=== PATIENT | male | born 1990 | race Hispanic/Latino ===

== ENCOUNTER 2021-10-25 12:43 | Emergency (ER) | payer BC ==
[2021-10-25] VITALS (7 sets, daily range): BP systolic 120–147; BP diastolic 75–107
[~2021-10-25] VITALS: Ht 185.4 cm; Wt 127.0 kg
[2021-10-25 13:15] LABS: HEMATOCRIT 44.4 % (39.0-50.0); HEMOGLOBIN 14.7 g/dl (14.0-18.0); IMMATURE GRANULOCYTES 0.4 % (0.0-5.0); MEAN CELL VOLUME 83.1 fL CALC (80.0-100.0); MEAN CORPUSCULAR HGB 27.5 pG CALC (26.0-32.0); MEAN CORPUSCULAR HGB CONC 33.1 g/dL CAL (32.0-36.0); NEUT# 4.86 thou/uL (1.82-7.42); RED BLOOD COUNT 5.34 mill/uL (4.70-6.10); RED CELL DISTRI WIDTH 13.1 % (11.5-15.5)
[2021-10-25 13:15] LABS: URINE BILIRUBIN - DIPSTICK NEGATIVE (NEGATIVE); URINE BLOOD DIPSTICK TRACE-INTACT (NEGATIVE); URINE COLOR YELLOW; URINE GLUCOSE - DIPSTICK NEGATIVE (NEGATIVE); URINE KETONE NEGATIVE (NEGATIVE); URINE LEUK ESTERASE NEGATIVE (NEGATIVE); URINE NITRITE - DIPSTICK NEGATIVE (Negative); URINE PROTEIN - DIPSTICK NEGATIVE (NEG-TRACE); URINE SPECIFIC GRAVITY >=1.030; URINE UROBILINOGEN - DIPSTICK 0.2 E.U./dL (0.2)
[2021-10-25 13:39] LABS: ALBUMIN 4.3 g/dL (3.2-5.0); ALKALINE PHOSPHATASE 89 u/l (38-126); AMYLASE 99 u/l (30-110); ANION GAP 9 (6-22 (CALC)); BILIRUBIN, TOTAL 0.3 mg/dL (0.0-1.4); BUN 10 mg/dL (9-20); BUN/CREATININE RATIO 10 (12-20 (CALC)); CARBON DIOXIDE 24 mmol/l (22-30); CHLORIDE 109 mmol/l (95-108); ETHYL ALCOHOL 0 mg/dl (0-30); GFR > 60 ML/MIN (>=60 (CALC)); GFR FOR AFR.AMER. > 60 ML/MIN (>=60 (CALC)); LIPASE 226 u/l (23-300); POTASSIUM 3.9 mmol/l (3.5-5.1); SGOT/AST 28 u/l (17-59); SODIUM 139 mmol/l (137-146); TOTAL PROTEIN 7.7 g/dL (6.3-8.2)
[2021-10-25] MEDS ORDERED: HYDROCO/APAP1 TA9 PO (15:19)
[2021-10-25] MEDS ORDERED: ZOFRAN4 MG/TAB PO (15:19)
== END 2021-10-25 15:38 | disposition home or self-care (01) | DRG 392 ==
LOC: ED 12:43
DX: R11.2 Nausea with vomiting, unspecified (principal); R19.7 Diarrhea, unspecified; F12.10 Cannabis abuse, uncomplicated; K29.70 Gastritis, unspecified, without bleeding
CPT/HCPCS: Q9967; S0164

== ENCOUNTER 2022-01-04 10:10 | Emergency (ER) | payer SELFPAY ==
[~2022-01-04] VITALS: Ht 185.4 cm; Wt 127.2 kg
[2022-01-04] VITALS (10 sets, daily range): BP systolic 97–149; BP diastolic 41–123
[~2022-01-04 10:10] MED LIST: HYDROCO/APAP1 TA9 PO; ZOFRAN4 MG/TAB PO
[2022-01-04 11:44] LABS: HEMATOCRIT 42.5 % (39.0-50.0); HEMOGLOBIN 14.2 g/dl (14.0-18.0); IMMATURE GRANULOCYTES 0.2 % (0.0-5.0); MEAN CELL VOLUME 82.8 fL CALC (80.0-100.0); MEAN CORPUSCULAR HGB 27.7 pG CALC (26.0-32.0); MEAN CORPUSCULAR HGB CONC 33.4 g/dL CAL (32.0-36.0); NEUT# 3.62 thou/uL (1.82-7.42); RED BLOOD COUNT 5.13 mill/uL (4.70-6.10); RED CELL DISTRI WIDTH 12.9 % (11.5-15.5)
[2022-01-04 11:57] LABS: ALBUMIN 4.5 g/dL (3.2-5.0); ALKALINE PHOSPHATASE 99 u/l (38-126); ANION GAP 13 (6-22 (CALC)); BILIRUBIN, TOTAL 0.6 mg/dL (0.0-1.4); BUN 12 mg/dL (9-20); BUN/CREATININE RATIO 11 (12-20 (CALC)); CARBON DIOXIDE 24 mmol/l (22-30); CHLORIDE 104 mmol/l (95-108); CREATININE 1.1 mg/dL (0.7-1.3); GFR FOR AFR.AMER. > 60 ML/MIN (>=60 (CALC)); GFR OTHER RACES > 60 ML/MIN (>=60 (CALC)); POTASSIUM 3.5 mmol/l (3.5-5.1); SGOT/AST 44 u/l (17-59); SODIUM 137 mmol/l (137-146); TOTAL PROTEIN 8.2 g/dL (6.3-8.2)
[2022-01-04] MEDS ORDERED: NAPROXEN500 MG PO (13:18)
[2022-01-04] MEDS ORDERED: FIORICET PO (13:18)
== END 2022-01-04 13:55 | disposition home or self-care (01) | DRG 103 ==
LOC: ED 10:10
PROVIDERS: Family Medicine
DX: G43.809 Other migraine, not intractable, without status migrainosus (principal); F17.290 Nicotine dependence, other tobacco product, uncomplicated

== ENCOUNTER 2022-08-14 11:23 | Emergency (ER) | payer OTHER ==
[~2022-08-14] VITALS: Ht 185.4 cm; Wt 127.0 kg
[2022-08-14] VITALS (7 sets, daily range): BP systolic 110–145; BP diastolic 51–99
[~2022-08-14 11:23] MED LIST changes: +FIORICET PO; +NAPROXEN500 MG PO
[2022-08-14 12:22] LABS: BASO% 0.4 % (0-3); HEMATOCRIT 45.4 % (39.0-50.0); HEMOGLOBIN 14.8 g/dl (14.0-18.0); IMMATURE GRANULOCYTES 0.3 % (0.0-5.0); LYMPH% 17.6 % (15-41); MEAN CELL VOLUME 84.1 fL CALC (80.0-100.0); MEAN CORPUSCULAR HGB 27.4 pG CALC (26.0-32.0); MEAN CORPUSCULAR HGB CONC 32.6 g/dL CAL (32.0-36.0); MONO% 7.7 % (2-13); NEUT# 5.53 thou/uL (1.82-7.42); RED BLOOD COUNT 5.4 mill/uL (4.70-6.10); RED CELL DISTRI WIDTH 12.9 % (11.5-15.5)
[2022-08-14 12:58] LABS: ALBUMIN 4.9 g/dL (3.2-5.0); ALKALINE PHOSPHATASE 98 u/l (38-126); BUN 16 mg/dL (9-20); BUN/CREATININE RATIO 16 (12-20 (CALC)); CARBON DIOXIDE 26 mmol/l (22-30); CHLORIDE 107 mmol/l (95-108); GFR FOR AFR.AMER. > 60 ML/MIN (>=60 (CALC)); GFR OTHER RACES > 60 ML/MIN (>=60 (CALC)); LIPASE 108 u/l (23-300); SGOT/AST 37 u/l (17-59); SODIUM 140 mmol/l (137-146); TOTAL PROTEIN 8.4 g/dL (6.3-8.2)
[2022-08-14 13:03] LABS: ANION GAP 11 (6-22 (CALC)); BILIRUBIN, TOTAL 0.3 mg/dL (0.2-1.3); POTASSIUM 4.3 mmol/l (3.5-5.1)
[2022-08-14] MEDS ORDERED: ZOFRAN4 MG/TAB PO (14:09)
== END 2022-08-14 14:31 | disposition home or self-care (01) | DRG 392 ==
LOC: ED 11:23
PROVIDERS: Family Medicine
DX: R10.9 Unspecified abdominal pain (principal)

== ENCOUNTER 2022-08-22 17:54 | Emergency (ER) | payer OTHER ==
[~2022-08-22] VITALS: Ht 185.4 cm; Wt 127.3 kg
[2022-08-22 18:48] LABS: BASO% 0.4 % (0-3); EOS% 0.6 % (0-8); HEMATOCRIT 46.5 % (39.0-50.0); HEMOGLOBIN 15.1 g/dl (14.0-18.0); MEAN CELL VOLUME 83.3 fL CALC (80.0-100.0); MEAN CORPUSCULAR HGB 27.1 pG CALC (26.0-32.0); MEAN CORPUSCULAR HGB CONC 32.5 g/dL CAL (32.0-36.0); MONO% 6.4 % (2-13); NEUT# 6.56 thou/uL (1.82-7.42); NEUT% 76.6 % (42-76); RED BLOOD COUNT 5.58 mill/uL (4.70-6.10); RED CELL DISTRI WIDTH 12.9 % (11.5-15.5)
[2022-08-22 18:53] LABS: ALBUMIN 5.2 g/dL (3.2-5.0); ALKALINE PHOSPHATASE 104 u/l (38-126); ANION GAP 13 (6-22 (CALC)); BUN 17 mg/dL (9-20); BUN/CREATININE RATIO 15 (12-20 (CALC)); CARBON DIOXIDE 28 mmol/l (22-30); CHLORIDE 106 mmol/l (95-108); CREATININE 1.1 mg/dL (0.7-1.3); GFR FOR AFR.AMER. > 60 ML/MIN (>=60 (CALC)); GFR OTHER RACES > 60 ML/MIN (>=60 (CALC)); LIPASE 98 u/l (23-300); POTASSIUM 3.8 mmol/l (3.5-5.1); SGOT/AST 51 u/l (17-59); SODIUM 142 mmol/l (137-146); TOTAL PROTEIN 9.2 g/dL (6.3-8.2)
[2022-08-22 19:07] LABS: BILIRUBIN, TOTAL 0.6 mg/dL (0.2-1.3)
[2022-08-22] MEDS ORDERED: CARAFATE PO (20:30)
[2022-08-22] MEDS ORDERED: EQ OMEPRAZOLE20 MG PO (20:30)
[2022-08-22 20:31] VITALS: BP 132/82
== END 2022-08-22 20:51 | disposition home or self-care (01) | DRG 392 ==
LOC: ED 17:54
PROVIDERS: Family Medicine
DX: K29.70 Gastritis, unspecified, without bleeding (principal)
CPT/HCPCS: Q9967; S0164

== ENCOUNTER 2022-12-18 13:15 | Emergency (ER) | payer OTHER ==
[~2022-12-18] VITALS: Ht 185.4 cm; Wt 122.4 kg
[~2022-12-18 13:15] MED LIST changes: +CARAFATE PO; +EQ OMEPRAZOLE20 MG PO
[2022-12-18 13:31] VITALS: BP 128/84
[2022-12-18 13:52] LABS: URINE BILIRUBIN - DIPSTICK NEGATIVE (NEGATIVE); URINE BLOOD DIPSTICK TRACE-LYSED (NEGATIVE); URINE COLOR YELLOW; URINE GLUCOSE - DIPSTICK NEGATIVE (NEGATIVE); URINE KETONE NEGATIVE (NEGATIVE); URINE LEUK ESTERASE NEGATIVE (NEGATIVE); URINE PROTEIN - DIPSTICK NEGATIVE (NEG-TRACE); URINE SPECIFIC GRAVITY 1.025; URINE UROBILINOGEN - DIPSTICK 0.2 E.U./dL (0.2)
[2022-12-18 13:53] LABS: URINE NITRITE - DIPSTICK NEGATIVE (Negative)
[2022-12-18] MEDS ORDERED: VIBRAMYCIN100 M2 PO (15:22)
[2022-12-18] MEDS ORDERED: NAPROXEN500 MG PO (15:23)
[2022-12-18 16:14] VITALS: BP 128/84
== END 2022-12-18 16:16 | disposition home or self-care (01) | DRG 730 ==
LOC: ED 13:15
PROVIDERS: Nurse Practitioner
DX: N50.812 Left testicular pain (principal); F17.200 Nicotine dependence, unspecified, uncomplicated

== ENCOUNTER 2023-02-24 15:24 | Emergency (ER) | payer OTHER ==
[~2023-02-24] VITALS: Ht 185.4 cm; Wt 129.2 kg
[~2023-02-24 15:24] MED LIST changes: +VIBRAMYCIN100 M2 PO
[2023-02-24 15:37] VITALS: BP 122/70
[2023-02-24] MEDS ORDERED: BACTRIM DS1 TAB PO (15:51)
[2023-02-24 16:19] VITALS: BP 122/70
== END 2023-02-24 16:29 | disposition home or self-care (01) | DRG 603 ==
LOC: ED 15:24
PROC: 0H98XZZ Drainage of Buttock Skin, External Approach (ICD-10-PCS; principal; 2023-02-24)
DX: L05.91 Pilonidal cyst without abscess (principal); F17.200 Nicotine dependence, unspecified, uncomplicated

== ENCOUNTER 2024-02-01 04:58 | Emergency (ER) | payer OTHER ==
[~2024-02-01] VITALS: Ht 185.4 cm; Wt 133.0 kg
[~2024-02-01 04:58] MED LIST changes: +BACTRIM DS1 TAB PO; +IMODIUM2 MG PO; +KLONOPIN2 MG PO; +OMEPRAZOLE20 MG PO; +PERCOCET 5/321 COMBO PO; +PERCOCET 5/325M1 TAB PO; +PROMETHAZINE HY25 M1 PO; +VENTOLIN HFA108 MCG IN
[2024-02-01 05:06] VITALS: BP 151/90
[2024-02-01] MEDS ORDERED: TRIAMCINOLONE ACETONIDE 200 MG/5 ML VIAL IM ONE (05:15)
[2024-02-01] MEDS ORDERED: BUPIVACAINE HCL PF 0.5 % 50 MG/10 ML SDV IM ONE (05:15)
[2024-02-01] MEDS ORDERED: DEXAMETHASON6 MG PO (05:21)
[2024-02-01] MEDS ORDERED: FLEXERIL5 M1 PO (05:21)
[2024-02-01 05:30] VITALS: BP 129/70
[2024-02-01] MEDS ORDERED: KETOROLAC TROMETHAMINE 15 MG/ML SDV IM ONE (05:40)
[2024-02-01] MEDS ORDERED: DEXAMETHASONE SOD. PHOSPHATE 10 MG/ML VIAL IM ONE (05:40)
[2024-02-01 05:58] VITALS: BP 129/70
== END 2024-02-01 06:05 | disposition home or self-care (01) | DRG 556 ==
LOC: ED 04:58
PROC: 3E0233Z Introduction of Anti-inflammatory into Muscle, Percutaneous Approach (ICD-10-PCS; principal; 2024-02-01)
PROC: 3E023BZ Introduction of Anesthetic Agent into Muscle, Percutaneous Approach (ICD-10-PCS; 2024-02-01)
DX: M79.18 Myalgia, other site (principal); F17.210 Nicotine dependence, cigarettes, uncomplicated

== ENCOUNTER 2024-07-05 10:42 | Emergency (ER) | payer OTHER ==
[~2024-07-05] VITALS: Ht 185.4 cm; Wt 129.2 kg
[2024-07-05] VITALS (7 sets, daily range): BP systolic 117–137; BP diastolic 73–87
[~2024-07-05 10:42] MED LIST changes: +DEXAMETHASON6 MG PO; +FLEXERIL5 M1 PO
[2024-07-05] MEDS ORDERED: ONDANSETRON HCl 4 MG/2 ML SDV IV ONE (11:05)
[2024-07-05] MEDS ORDERED: SODIUM CHLORIDE 0.9% 1,000 ML IV ONE (11:05)
[2024-07-05] MEDS ORDERED: KETOROLAC TROMETHAMINE 15 MG/ML SDV IV ONE (11:05)
[2024-07-05 11:14] LABS: BASO% 0.5 % (0-3); EOS% 3.4 % (0-8); HEMATOCRIT 45.3 % (39.0-50.0); IMMATURE GRANULOCYTES 0.2 % (0.0-5.0); LYMPH% 20.9 % (15-41); MEAN CORPUSCULAR HGB 28.1 pG CALC (26.0-32.0); MEAN CORPUSCULAR HGB CONC 33.1 g/dL CAL (32.0-36.0); MONO% 8.3 % (2-13); NEUT# 5.63 thou/uL (1.82-7.42); NEUT% 66.7 % (42-76); RED BLOOD COUNT 5.33 mill/uL (4.70-6.10); RED CELL DISTRI WIDTH 13.1 % (11.5-15.5)
[2024-07-05 11:26] LABS: ALBUMIN 4.6 g/dL (3.2-5.0); BILIRUBIN, TOTAL 0.5 mg/dL (0.2-1.3); POTASSIUM 4.4 mmol/l (3.5-5.1)
[2024-07-05] MEDS ORDERED: Pantoprazole Sodium 40 MG VIAL (Protonix) IV STA (12:30)
[2024-07-05 12:52] LABS: URINE BILIRUBIN - DIPSTICK Negative (NEGATIVE); URINE BLOOD DIPSTICK Trace-intact (NEGATIVE); URINE GLUCOSE - DIPSTICK Negative (NEGATIVE); URINE KETONE Negative (NEGATIVE); URINE LEUK ESTERASE Negative (NEGATIVE); URINE NITRITE - DIPSTICK Negative (Negative); URINE PH 5.5 (4.5-8.0); URINE PROTEIN - DIPSTICK Negative (NEG-TRACE); URINE UROBILINOGEN - DIPSTICK 0.2 E.U./dL (0.2)
[2024-07-05 12:54] LABS: URINE COLOR Yellow
[2024-07-05] MEDS ORDERED: PROTONIX40 M2 PO (12:58)
== END 2024-07-05 13:26 | disposition home or self-care (01) | DRG 392 ==
LOC: ED 10:42
PROVIDERS: Family Medicine
DX: K29.70 Gastritis, unspecified, without bleeding (principal)
CPT/HCPCS: J1885; J2405; J2470